=== PATIENT | male | born 1970 | race American Indian/Alaskan Native ===

== ENCOUNTER 2021-10-02 09:29 | Outpatient (CLI) | payer OTHER ==
--- NOTE | 2021-10-02 10:30 | XRay Report ---
LUMBAR SPINE 3 VIEWS INDICATION: BACK PAIN COMPARISON: None. FINDINGS: There is no fracture, subluxation, or other acute radiographic abnormality of the lumbar spine. There is mild narrowing of the L5-S1 disc space with small anterior osteophytes. Signer Name: Ashvin Antony MD Signed: 10/02/2021 10:25 AM Workstation Name: [id number]
== END 2021-10-02 09:30 | disposition home or self-care (01) ==
LOC: XRAY 09:29
PROVIDERS: ATTEND Internal Medicine
DX: M48.07 Spinal stenosis, lumbosacral region (principal); I10 Essential (primary) hypertension; M25.78 Osteophyte, vertebrae
CPT/HCPCS: 72100